=== PATIENT | female | born 1965 | race Caucasian/White ===

== ENCOUNTER 2020-11-27 13:08 | Emergency (ER) | payer MEDICARE ==
[2020-11-27] MEDS ORDERED: NORCO 5-325 TA1 EACH PO ×2 (16:46→16:56)
== END 2020-11-27 17:16 | disposition home or self-care (01) ==
LOC: FER 13:08
DX: S86.212A Strain of muscle(s) and tendon(s) of anterior muscle group at lower leg level, left leg, initial encounter (principal); G35 Multiple sclerosis; Z85.6 Personal history of leukemia; W18.09XA Striking against other object with subsequent fall, initial encounter; Y92.009 Unspecified place in unspecified non-institutional (private) residence as the place of occurrence of the external cause
CPT/HCPCS: 73564; 73590

== ENCOUNTER 2021-04-13 14:40 | Day surgery (SDCO) | payer MEDICARE ==
[~2021-04-13] VITALS: Ht 167.6 cm; Wt 64.6 kg
[~2021-04-13 14:40] MED LIST: NORCO 5-325 TA1 EACH PO
[2021-04-13 15:57] LABS: BILIRUBIN NEGATIVE (NEGATIVE); BLOOD NEGATIVE Ery/uL (NEGATIVE); CLARITY HAZY (CLEAR); COLOR YELLOW (YELLOW); GLUCOSE (U) NORMAL (NORMAL); LEUKOCYTES 1+ Leu/uL (NEGATIVE); NITRITE POSITIVE (NEGATIVE); PROTEIN NEGATIVE (NEGATIVE); SPECIFIC GRAVITY <=1.005 (1.001-1.030); UROBILINOGEN 0.2 mg/dL (0.2-1.0); pH 6.5 (5.0-9.0)
[2021-04-13 15:59] LABS: AMPHETAMINES NEGATIVE (NEGATIVE); BARBITURATES NEGATIVE (NEGATIVE); ECSTASY (MDMA) NEGATIVE (NEGATIVE); MARIJUANA (THC) POSITIVE (NEGATIVE); METHADONE NEGATIVE (NEGATIVE); OPIATES NEGATIVE (NEGATIVE); OXYCODONE NEGATIVE (NEGATIVE)
[2021-04-13 16:02] LABS: BASOPHIL 6.7 % (0-2); EOSINOPHIL 1.8 % (0-5); HCT 36.7 % (37.0-47.0); HGB 12.2 g/dl (12.5-16.0); LYMPHOCYTE 7.8 % (15-48); MCH 30.7 pg (25.0-31.0); MCHC 33.2 g/dL (32.0-36.0); MCV 92.2 fL (78.0-100.0); MONOCYTE 1.7 % (0-12); MPV 8.7 fL (6.0-9.5); NEUTROPHIL 55.8 % (41-80); NRBC 1.7; PLT 501 K/uL (150-400); RBC 3.98 M/uL (4.20-5.40); RDW 19.3 % (11.5-14.0)
[2021-04-13 16:03] LABS: BACTERIA 4+; TRANSITIONAL EPITHELIAL CELLS RARE; URINARY RBC RARE
[2021-04-13 16:14] LABS: PROTHROMBIN TIME 12.6 SECONDS (11.8-13.4); PTT 29.6 SECONDS (24.4-34.7)
[2021-04-13 16:23] LABS: WBC 127.7 K/uL (4.0-10.5)
[2021-04-13 16:27] LABS: ALBUMIN 4.3 g/dL (3.4-5.0); ALKALINE PHOSHATASE 93 U/L (46-116); ALT 25 U/L (14-59); AST 22 U/L (15-37); BILIRUBIN - TOTAL 0.3 mg/dL (0.2-1.0); BUN 6 mg/dL (7-18); BUN/CREAT RATIO (CALC) 9.7 RATIO; CHLORIDE 97 mmol/L (98-107); CO2 (BICARBONATE) 26 mmol/L (21-32); CREATININE 0.62 mg/dL (0.51-0.95); GLUCOSE 103 mg/dL (74-106); LIPASE 75 U/L (73-393); POTASSIUM 4.1 mmol/L (3.5-5.1); TOTAL PROTEIN 7.3 g/dL (6.4-8.2)
[2021-04-13 16:34] LABS: LACTIC ACID 0.7 mmol/L (0.4-1.9)
[2021-04-13] MEDS ORDERED: VICODIN 10/3251 EACH PO (18:20)
[2021-04-13] MEDS ORDERED: GABAPENTIN600 MG PO (18:21)
[2021-04-13] MEDS ORDERED: IMITREX SQ6 MG/0.5 M SC (18:22)
[2021-04-13] MEDS ORDERED: IMITREX100 MG PO (18:22)
[2021-04-13] MEDS ORDERED: CLONIDINE HCL0.1 MG PO (18:23)
[2021-04-13] MEDS ORDERED: REGLAN10 MG PO ×2 (18:23→18:24)
[2021-04-13] MEDS ORDERED: EFFEXOR XR150 MG PO (18:24)
[2021-04-13] MEDS ORDERED: MARINOL5 MG PO (18:25)
[2021-04-13] MEDS ORDERED: SYNTHROID75 MCG PO (18:25)
[2021-04-14 05:38] LABS: BASOPHIL 8.5 % (0-2); EOSINOPHIL 1.7 % (0-5); HCT 37.5 % (37.0-47.0); HGB 12.4 g/dl (12.5-16.0); LYMPHOCYTE 8.1 % (15-48); MCH 30.8 pg (25.0-31.0); MCHC 33.1 g/dL (32.0-36.0); MCV 93.1 fL (78.0-100.0); MONOCYTE 2.1 % (0-12); MPV 8.7 fL (6.0-9.5); NEUTROPHIL 53.8 % (41-80); NRBC 1.7; PLT 509 K/uL (150-400); RBC 4.03 M/uL (4.20-5.40); RDW 19.6 % (11.5-14.0)
[2021-04-14 06:09] LABS: BUN/CREAT RATIO (CALC) 9.1 RATIO; CREATININE 0.66 mg/dL (0.51-0.95); POTASSIUM 4.2 mmol/L (3.5-5.1)
[2021-04-14 06:48] LABS: WBC 123.7 K/uL (4.0-10.5)
[2021-04-14 12:17] LABS: BILIRUBIN NEGATIVE (NEGATIVE); BLOOD NEGATIVE Ery/uL (NEGATIVE); CLARITY CLEAR (CLEAR); COLOR YELLOW (YELLOW); GLUCOSE (U) NORMAL (NORMAL); LEUKOCYTES 1+ Leu/uL (NEGATIVE); NITRITE POSITIVE (NEGATIVE); PROTEIN NEGATIVE (NEGATIVE); UROBILINOGEN 0.2 mg/dL (0.2-1.0)
--- NOTE | 2021-04-14 12:33 | NUR ---
PT STATED NOT BEING ABLE TO VOID SINCE 2 AM. RN BLADDER SCANNED WITH RESULTS OF 582 ML. MD ORDERED FOR STRAIGHT CATH. RN STRAIGHT CATHED PT WITH 475 ML OUTPUT. PT TOLERATED WELL. UA SENT TO LAB
[2021-04-16 04:20] LABS: BASOPHIL 9.1 % (0-2); EOSINOPHIL 1.3 % (0-5); HCT 36.3 % (37.0-47.0); HGB 11.6 g/dl (12.5-16.0); MCH 30.9 pg (25.0-31.0); MCV 96.5 fL (78.0-100.0); MONOCYTE 2.8 % (0-12); MPV 9.4 fL (6.0-9.5); NRBC 1.2; PLT 152 K/uL (150-400); RBC 3.76 M/uL (4.20-5.40); RDW 19.3 % (11.5-14.0)
[2021-04-16 04:25] LABS: WBC 96.6 K/uL (4.0-10.5)
[2021-04-16 04:47] LABS: BUN/CREAT RATIO (CALC) 14.9 RATIO; CREATININE 0.67 mg/dL (0.51-0.95); POTASSIUM 4.6 mmol/L (3.5-5.1)
--- NOTE | 2021-04-16 11:20 | NUR ---
PATIENT CALLED OUT REQUESTING TO SEE THIS RN. RN OBTAINED PATIENT'S PRN VICODIN 10/325MG TABLET. UPON ENTERING ROOM, PATIENT STANDING BEHIND RECLINER WITH TOWEL OVER HER HEAD AND USING PLASTIC CLIPBOARD TO HIT HERSELF IN THE HEAD. PATIENT STATES SHE IS HAVING A CLUSTER HEADACHE. PATIENT STATES VICODIN WILL NOT HELP HER FAST ENOUGH. ENCOURAGED PATIENT TO GO AHEAD AND TAKE VICODIN SO IT COULD START TO WORK WHILE RN CONTACTS MD FOR FURTHER ORDERS. RN CALLED DR SMITH, ORDERS INPUT FOR O2 PER NONREBREATHER FOR [address] SMITH TO INPUT ONE TIME ORDERS FOR MORPHINE AND ATIVAN
[2021-04-17] MEDS ORDERED: PHENERGAN25 M1 PO (13:42)
[2021-04-17] MEDS ORDERED: ATIVAN1 MG PO (13:42)
[2021-04-17] MEDS ORDERED: VICODIN 10/3251 EACH PO (13:42)
[2021-04-17] MEDS ORDERED: KEFLEX250 MG PO (13:42)
[2021-04-17] MEDS ORDERED: SYNTHROID75 MCG PO (14:37)
== END 2021-04-17 15:00 | disposition home or self-care (01) ==
LOC: FER 14:40 → FMS 17:01
PROVIDERS: Emergency Medicine; Nurse Practitioner; ADMIT Internal Medicine
DX: N39.0 Urinary tract infection, site not specified (principal); B96.20 Unspecified Escherichia coli [E. coli] as the cause of diseases classified elsewhere; G93.41 Metabolic encephalopathy; G44.009 Cluster headache syndrome, unspecified, not intractable; C95.90 Leukemia, unspecified not having achieved remission; K59.00 Constipation, unspecified; G35 Multiple sclerosis; M81.0 Age-related osteoporosis without current pathological fracture; G89.29 Other chronic pain; M54.9 Dorsalgia, unspecified; E03.9 Hypothyroidism, unspecified; Z85.3 Personal history of malignant neoplasm of breast; Z87.891 Personal history of nicotine dependence; Z79.899 Other long term (current) drug therapy; Z88.5 Allergy status to narcotic agent; Z88.6 Allergy status to analgesic agent; Z91.041 Radiographic dye allergy status; Z20.822 Contact with and (suspected) exposure to COVID-19
CPT/HCPCS: 36415; 70450; 71250; 72072; 72100; 80048; 80053; 80305; 81001; 81003; 83605; 83690; 84145; 84443; 84484; 85025; 85610; 85730; 87040; 87076; 87088; 87186; 93005; G0378; G0480; J0696; J1650; J1885; J2060; J2270; J2405; J2550; J3030; Q0169; U0002

== ENCOUNTER 2021-09-11 06:37 | Inpatient (IN) | payer MEDICARE ==
[~2021-09-11] VITALS: Ht 167.6 cm; Wt 50.8 kg
[~2021-09-11 06:37] MED LIST changes: +ATIVAN1 MG PO; +CLONIDINE HCL0.1 MG PO; +EFFEXOR XR150 MG PO; +GABAPENTIN600 MG PO; +IMITREX SQ6 MG/0.5 M SC; +IMITREX100 MG PO; +KEFLEX250 MG PO; +MARINOL5 MG PO; +PHENERGAN25 M1 PO; +REGLAN10 MG PO; +SYNTHROID75 MCG PO; +VICODIN 10/3251 EACH PO
[2021-09-11 07:49] LABS: BASOPHIL 6.3 % (0-2); EOSINOPHIL 30.1 % (0-5); HCT 34.5 % (37.0-47.0); HGB 11.9 g/dl (12.5-16.0); LYMPHOCYTE 7.1 % (15-48); MCH 30.8 pg (25.0-31.0); MCHC 34.5 g/dL (32.0-36.0); MCV 89.4 fL (78.0-100.0); MONOCYTE 1.4 % (0-12); MPV 9.8 fL (6.0-9.5); NEUTROPHIL 36.2 % (41-80); NRBC 0.1; PLT 485 K/uL (150-400); RBC 3.86 M/uL (4.20-5.40); RDW 16.4 % (11.5-14.0)
[2021-09-11 07:56] LABS: WBC 101.6 K/uL (4.0-10.5)
[2021-09-11 07:59] LABS: BILIRUBIN NEGATIVE (NEGATIVE); BLOOD NEGATIVE Ery/uL (NEGATIVE); CLARITY CLOUDY (CLEAR); COLOR YELLOW (YELLOW); GLUCOSE (U) NORMAL (NORMAL); LEUKOCYTES 2+ Leu/uL (NEGATIVE); NITRITE POSITIVE (NEGATIVE); PROTEIN NEGATIVE (NEGATIVE); SPECIFIC GRAVITY 1.015 (1.001-1.030); UROBILINOGEN 0.2 mg/dL (0.2-1.0)
[2021-09-11 08:11] LABS: BACTERIA 4+; URINARY RBC RARE; URINARY WBC 20-50
[2021-09-11 08:14] LABS: ALBUMIN 4.4 g/dL (3.4-5.0); BILIRUBIN - TOTAL 0.2 mg/dL (0.2-1.0); BUN/CREAT RATIO (CALC) 13.3 RATIO; CREATININE 0.75 mg/dL (0.51-0.95); GLOBULIN (CALCULATION) 3.3 g/dL; POTASSIUM 4.3 mmol/L (3.5-5.1); TOTAL PROTEIN 7.7 g/dL (6.4-8.2)
[2021-09-11 11:12] LABS: CORONAVIRUS 2019 SARS-COV-2 NEGATIVE (NEGATIVE); INFLUENZA A NAA NEGATIVE (NEGATIVE)
[2021-09-12 05:56] LABS: BASOPHIL 8.1 % (0-2); EOSINOPHIL 1.6 % (0-5); HCT 37.9 % (37.0-47.0); HGB 12.4 g/dl (12.5-16.0); LYMPHOCYTE 5.1 % (15-48); MCHC 32.7 g/dL (32.0-36.0); MCV 91.5 fL (78.0-100.0); MONOCYTE 3.7 % (0-12); MPV 9.5 fL (6.0-9.5); NEUTROPHIL 55.6 % (41-80); NRBC 0.1; PLT 476 K/uL (150-400); RBC 4.14 M/uL (4.20-5.40); RDW 16.8 % (11.5-14.0)
[2021-09-12 06:00] LABS: WBC 87.6 K/uL (4.0-10.5)
[2021-09-12 07:16] LABS: ALBUMIN 3.7 g/dL (3.4-5.0); ALKALINE PHOSHATASE 67 U/L (46-116); ALT 17 U/L (14-59); AST 15 U/L (15-37); BILIRUBIN - TOTAL 0.2 mg/dL (0.2-1.0); BUN 5 mg/dL (7-18); BUN/CREAT RATIO (CALC) 8.3 RATIO; CHLORIDE 102 mmol/L (98-107); CO2 (BICARBONATE) 24 mmol/L (21-32); GLUCOSE 92 mg/dL (74-106); POTASSIUM 4.1 mmol/L (3.5-5.1); TOTAL PROTEIN 6.7 g/dL (6.4-8.2)
[2021-09-12 11:37] LABS: BUN/CREAT RATIO (CALC) 6.6 RATIO; CREATININE 0.61 mg/dL (0.51-0.95); POTASSIUM 4.1 mmol/L (3.5-5.1)
[2021-09-12 17:08] LABS: BUN/CREAT RATIO (CALC) 10.8 RATIO; CREATININE 0.65 mg/dL (0.51-0.95)
[2021-09-13 06:28] LABS: BASOPHIL 8.5 % (0-2); HCT 38.6 % (37.0-47.0); HGB 12.5 g/dl (12.5-16.0); LYMPHOCYTE 8.2 % (15-48); MCH 30.4 pg (25.0-31.0); MCHC 32.4 g/dL (32.0-36.0); MCV 93.9 fL (78.0-100.0); MONOCYTE 1.5 % (0-12); MPV 9.9 fL (6.0-9.5); NRBC 0.2; PLT 439 K/uL (150-400); RBC 4.11 M/uL (4.20-5.40); RDW 17.1 % (11.5-14.0)
[2021-09-13 06:34] LABS: WBC 64.1 K/uL (4.0-10.5)
[2021-09-13 06:36] LABS: BUN 4 mg/dL (7-18); BUN/CREAT RATIO (CALC) 6.5 RATIO; CHLORIDE 101 mmol/L (98-107); CO2 (BICARBONATE) 29 mmol/L (21-32); CREATININE 0.62 mg/dL (0.51-0.95); GLUCOSE 94 mg/dL (74-106); POTASSIUM 3.9 mmol/L (3.5-5.1)
[2021-09-13 06:37] LABS: C-REACTIVE PROTEIN < 0.20 mg/dL (<=0.90)
[2021-09-14] MEDS ORDERED: SYNTHROID75 MCG PO (10:01)
[2021-09-14] MEDS ORDERED: FLEXERIL5 MG PO (10:01)
[2021-09-14] MEDS ORDERED: BACTRIM DS TAB1 EACH PO (10:07)
--- NOTE | 2021-09-14 10:50 | NUR ---
09/14/21 Ms. Diaz lives alone. She has a fiance who stays in the home if she needs the support. 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 - Jose has a rw, rollator, and travel wc. She reports that the rw is over 5 years old and not functioning well. A referral was made to [facility] for a rw.
[2021-09-14] MEDS ORDERED: PHENERGAN25 M1 PO (15:33)
== END 2021-09-14 12:12 | disposition home or self-care (01) | DRG 841 ==
LOC: FER 06:37 → FMS 10:26
PROVIDERS: Emergency Medicine; Emergency Medicine Emergency Medical Services; ADMIT Allergy & Immunology Allergy
DX: C92.10 Chronic myeloid leukemia, BCR/ABL-positive, not having achieved remission (principal); E87.1 Hypo-osmolality and hyponatremia; N13.6 Pyonephrosis; B96.20 Unspecified Escherichia coli [E. coli] as the cause of diseases classified elsewhere; R04.0 Epistaxis; Z20.822 Contact with and (suspected) exposure to COVID-19; R16.1 Splenomegaly, not elsewhere classified; G35 Multiple sclerosis; E03.9 Hypothyroidism, unspecified; G43.909 Migraine, unspecified, not intractable, without status migrainosus; M54.9 Dorsalgia, unspecified; G89.29 Other chronic pain; Z85.3 Personal history of malignant neoplasm of breast; Z90.13 Acquired absence of bilateral breasts and nipples; Z87.442 Personal history of urinary calculi; Z90.710 Acquired absence of both cervix and uterus; Z88.5 Allergy status to narcotic agent; Z88.6 Allergy status to analgesic agent; Z92.21 Personal history of antineoplastic chemotherapy; Z92.3 Personal history of irradiation
CPT/HCPCS: 36415; 80048; 80053; 81001; 82607; 82728; 83605; 85025; 86140; 93005; J0696; J1170; J1650; J2270; J2405; J2550; J3030; J7030; J7060; J7070; Q0169; U0002

== ENCOUNTER 2022-03-14 11:45 | Day surgery (SDCO) | payer MEDICARE ==
[~2022-03-14] VITALS: Ht 167.6 cm; Wt 47.6 kg
[~2022-03-14 11:45] MED LIST changes: +BACTRIM DS TAB1 EACH PO; +CEFDINIR300 MG PO; +FLEXERIL5 MG PO; +PERCOCET 10-321 EACH PO
[2022-03-14 14:49] LABS: BASOPHIL 7.8 % (0-2); EOSINOPHIL 1.7 % (0-5); HCT 37.2 % (37.0-47.0); HGB 12.3 g/dl (12.5-16.0); LYMPHOCYTE 6.1 % (15-48); MCH 29.9 pg (25.0-31.0); MCHC 33.1 g/dL (32.0-36.0); MCV 90.5 fL (78.0-100.0); MONOCYTE 1.1 % (0-12); MPV 9.4 fL (6.0-9.5); NEUTROPHIL 56.4 % (41-80); NRBC 0.3; PLT 685 K/uL (150-400); RBC 4.11 M/uL (4.20-5.40); RDW 17.3 % (11.5-14.0)
[2022-03-14 14:54] LABS: WBC 127.1 K/uL (4.0-10.5)
[2022-03-14 15:07] LABS: ALBUMIN 4.3 g/dL (3.4-5.0); BILIRUBIN - TOTAL 0.2 mg/dL (0.2-1.0); BUN/CREAT RATIO (CALC) 11.1 RATIO; CREATININE 0.54 mg/dL (0.51-0.95); GLOBULIN (CALCULATION) 3.4 g/dL; TOTAL PROTEIN 7.7 g/dL (6.4-8.2)
[2022-03-14 16:53] LABS: CORONAVIRUS 2019 SARS-COV-2 NEGATIVE (NEGATIVE); INFLUENZA A NAA NEGATIVE (NEGATIVE)
[2022-03-14] MEDS ORDERED: DRONABINOL5 MG PO (19:25)
[2022-03-14 23:45] LABS: BILIRUBIN NEGATIVE (NEGATIVE); BLOOD TRACE-LYSED Ery/uL (NEGATIVE); CLARITY CLEAR (CLEAR); COLOR YELLOW (YELLOW); GLUCOSE (U) NORMAL (NORMAL); LEUKOCYTES NEGATIVE Leu/uL (NEGATIVE); NITRITE NEGATIVE (NEGATIVE); PROTEIN NEGATIVE (NEGATIVE); SPECIFIC GRAVITY <=1.005 (1.001-1.030); UROBILINOGEN 0.2 mg/dL (0.2-1.0); pH 6.5 (5.0-9.0)
[2022-03-15 01:05] LABS: URINARY RBC RARE
[2022-03-15 06:45] LABS: BASOPHIL 8.1 % (0-2); HCT 32.4 % (37.0-47.0); HGB 10.5 g/dl (12.5-16.0); LYMPHOCYTE 4.8 % (15-48); MCH 29.8 pg (25.0-31.0); MCHC 32.4 g/dL (32.0-36.0); MONOCYTE 3.2 % (0-12); MPV 10.3 fL (6.0-9.5); NEUTROPHIL 55.5 % (41-80); NRBC 0.3; PLT 577 K/uL (150-400); RBC 3.52 M/uL (4.20-5.40); RDW 17.8 % (11.5-14.0)
[2022-03-15 07:20] LABS: ALBUMIN 3.7 g/dL (3.4-5.0); BILIRUBIN - TOTAL 0.2 mg/dL (0.2-1.0); BUN/CREAT RATIO (CALC) 9.4 RATIO; CREATININE 0.53 mg/dL (0.51-0.95); GLOBULIN (CALCULATION) 2.8 g/dL; POTASSIUM 3.9 mmol/L (3.5-5.1); TOTAL PROTEIN 6.5 g/dL (6.4-8.2)
[2022-03-15 07:35] LABS: WBC 106.6 K/uL (4.0-10.5)
[2022-03-16 07:11] LABS: HCT 32.2 % (37.0-47.0); HGB 10.6 g/dl (12.5-16.0); MCH 29.9 pg (25.0-31.0); MCHC 32.9 g/dL (32.0-36.0); MCV 90.7 fL (78.0-100.0); MPV 9.7 fL (6.0-9.5); RBC 3.55 M/uL (4.20-5.40); RDW 17.2 % (11.5-14.0)
[2022-03-16 07:27] LABS: WBC 92.9 K/uL (4.0-10.5)
[2022-03-16 07:41] LABS: BUN/CREAT RATIO (CALC) 10.9 RATIO; CREATININE 0.55 mg/dL (0.51-0.95); POTASSIUM 3.7 mmol/L (3.5-5.1)
== END 2022-03-16 14:26 | disposition home or self-care (01) ==
LOC: FER 11:45 → FMS 16:18
PROVIDERS: Nurse Practitioner; Nurse Practitioner Family; ADMIT Family Medicine
DX: C92.10 Chronic myeloid leukemia, BCR/ABL-positive, not having achieved remission (principal); E87.1 Hypo-osmolality and hyponatremia; G89.4 Chronic pain syndrome; Z20.822 Contact with and (suspected) exposure to COVID-19; Z79.899 Other long term (current) drug therapy; Z88.5 Allergy status to narcotic agent; Z88.6 Allergy status to analgesic agent; Z91.041 Radiographic dye allergy status; Z72.89 Other problems related to lifestyle
CPT/HCPCS: 36415; 80048; 80053; 81001; 85025; G0378; J1170; J1650; J2550; J3030; J7030; J7120; Q0169; U0002